=== PATIENT | female | born 1965 | race Hispanic/Latino ===

== ENCOUNTER 2021-06-09 10:10 | Outpatient (CLI) | payer MEDICAID ==
--- NOTE | 2021-06-09 11:20 | Cat Scan Report ---
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 TECHNIQUE: Axial CT images were obtained through the abdomen and pelvis without IV contrast. All CT scans at this location are performed using CT dose reduction for ALARA by means of automated exposure control. COMPARISON: None available. FINDINGS: LOWER CHEST: No significant abnormality. AORTA / ARTERIES: Mild atherosclerotic calcification without acute abnormality. IVC / VEINS: No significant abnormality. LYMPH NODES: No significant adenopathy. COLON: Large amount stool is noted throughout the colon. There is diverticulosis without diverticulit is. APPENDIX: Not visualized. STOMACH / SMALL BOWEL: No significant abnormality. PERITONEUM: No free fluid. No free air. No fluid collection. LIVER: No significant abnormality. GALLBLADDER: No significant abnormality. BILE DUCTS: No significant abnormality. PANCREAS: No significant abnormality. SPLEEN: No significant abnormality. ADRENALS: No significant abnormality. RIGHT KIDNEY / URETER: Staghorn calculi are noted involving the right collecting system. There is no significant hydronephrosis. LEFT KIDNEY / URETER: Punctate calcifications measuring up to 0.5 cm are noted within the left kidney . No significant hydronephrosis. URINARY BLADDER: There is a suprapubic catheter. REPRODUCTIVE ORGANS: No significant abnormality. SKELETAL SYSTEM: No significant abnormality. ADDITIONAL FINDINGS: Numerous soft tissue nodules with fatty centers are noted throughout the anterio r abdominal wall. These likely represents granulomas. IMPRESSION: 1. Staghorn calculi within the right kidney. No hydronephrosis. 2. Punctate stones within the left kidney measuring up to 5 mm. No hydronephrosis. 3. Indwelling suprapubic catheter. 4. Large stool retention throughout the colon. 5. Diverticulosis without diverticulitis. Signer Name: David Benito DO Signed: 06/09/2021 11:15 AM Workstation Name: [id number]
== END 2021-06-09 10:11 | disposition home or self-care (01) ==
LOC: CT 10:10
PROVIDERS: ATTEND Urology
DX: N20.0 Calculus of kidney (principal); K57.30 Diverticulosis of large intestine without perforation or abscess without bleeding; N31.1 Reflex neuropathic bladder, not elsewhere classified
CPT/HCPCS: 74176